=== PATIENT | male | born 1985 | race African-American/Black ===

== ENCOUNTER 2018-10-24 21:44 | Inpatient (IN) | payer OTHER ==
[~2018-10-24] VITALS: Ht 182.9 cm; Wt 83.8 kg
[2018-10-24 22:21] LABS: ABSOLUTE NEUTROPHILS 6.2 thou/uL (1.4-8.2); BASOPHILS 0.5 % (0.0-2.0); EOSINOPHILS 0.8 % (0.0-3.0); HEMATOCRIT 50.3 % (42.0-52.0); HEMOGLOBIN 16.4 gm/dL (14.0-18.0); LYMPHOCYTES 28.1 % (24.0-44.0); MCH 32.3 pg (26.0-34.0); MCHC 32.7 g/dL (28.0-37.0); MONOCYTES 11.4 % (1.0-8.0); PLATELET COUNT 186 thou/uL (150-400); POLYS 59.2 % (36.0-66.0); RBC 5.08 mil/uL (4.50-6.00); RDW 14.5 % (10.5-14.5); WBC 10.4 thou/uL (4.0-11.0)
--- NOTE | 2018-10-24 22:39 | NUR ---
LAST RESTRAINT REMOVED FROM RIGHT WRIST AT THIS TIME. PATIENT STATES HE WILL REMAIN CALM AND COOPERATIVE. WHEN ASKED ABOUT THE EVENTS OF THE EVENING, DORA STATES THAT HE HAD A FEW BEERS EARLIER IN THE DAY. DENIES ANY ILICIT DRUG USE. STATES HE HAS HAD FAINTING SPELLS SINCE THE AGE OF 11, WITH NO KNOWN CAUSE. PATIENT SLEEPING, BUT EASILY AROUSED.
[2018-10-24 22:40] LABS: ALBUMIN 3.7 g/dL (3.4-5.0); ANION GAP 28 mmol/L (7-16); BUN 2 mg/dL (7-18); CALCIUM 8.3 mg/dL (8.5-10.1); CHLORIDE 98 mmol/L (98-107); CO2 16 mmol/L (21-32); CREATININE 1.3 mg/dL (0.7-1.3); GLUCOSE 89 mg/dL (74-106); SALICYLATE < 2.8 mg/dL (2.8-20.0); SGOT 68 U/L (15-37); SGPT 70 U/L (30-65); SODIUM 142 mmol/L (136-145); TOTAL BILIRUBIN 0.5 mg/dL (<0.1-1.0); TOTAL PROTEIN 7.1 g/dL (6.4-8.2)
[2018-10-24 22:41] LABS: POTASSIUM 2.7 mmol/L (3.5-5.1)
[2018-10-25] VITALS (48 sets, daily range): BP systolic 110–138; BP diastolic 66–97
[2018-10-25 00:01] LABS: AMP/METHAMP Negative (Negative); BARBITURATES Negative (Negative); BENZODIAZEPINES Negative (Negative); COCAINE Negative (Negative); METHADONE Negative (Negative); OPIATES Negative (Negative); PCP Negative (Negative)
--- NOTE | 2018-10-25 05:23 | NUR ---
JOSE G PAEZ CALLED, PT REPORTS HE IS LEAVING, PURPOSEFUL STRIDES TO DOOR UNABLE TO REASON WITH PT BACK TO ROOM WITH SECURITY ON EITHER SIDE. JOSE G PAEZ CALLED AT [phone]. PT WILL BE AN ADMISSION FOR PSYCH
--- NOTE | 2018-10-25 05:26 | NUR ---
AFTER SPEAKING WITH PSYCH BORDEREAU CLERK, PATIENT DECIDED TO YANK IV OUT AND LEAVE HIS ROOM. REFUSING TO BE REDIRECTED AND THREATENING STAFF. PATIENT IS NOW IN 4 POINT RESTRAINTS AT THIS TIME. MEDICATIONS ADMINISTERED. BLOOD PRESSURE CUFF ON. OTHER MONITORING EQUIPMENT NOT APPLIED AT THIS TIME DUE TO PATIENT'S NON-COMPLIANCE. SECURITY AT BEDSIDE.
--- NOTE | 2018-10-25 05:47 | NUR ---
PATIENT CONTINUES TO THREATEN STAFF. SECURITY AT BEDSIDE. MEDICATIONS ADMINISTERED. PATIETN ATTEMPTING TO URINATE ON STAFF. PATIENT'S WAIST BAND TIED AND BRIEF APPLIED.
[2018-10-25 06:41] LABS: ANION GAP 15 mmol/L (7-16); BUN 2 mg/dL (7-18); CHLORIDE 107 mmol/L (98-107); CO2 23 mmol/L (21-32); CREATININE 1.1 mg/dL (0.7-1.3); GLUCOSE 68 mg/dL (74-106); POTASSIUM 3.2 mmol/L (3.5-5.1); SODIUM 145 mmol/L (136-145)
--- NOTE | 2018-10-25 07:11 | NUR ---
REPORT TO DAY SHIFT
--- NOTE | 2018-10-25 07:47 | NUR ---
SISTER MARICRUZ AND PT MOTHER EXPRESS CONCERN REGARDING PT BEHAVIOR. THEY BOTH REPORT ANGER OUT OF PROPORTION FOR SITUATION. EXPLOSIVE AND NO ONE CAN REASON WITH PT. BOTH LADIES SAY THAT SMALL THINGS PROVOKE RAGE REACTIONS IN WHICH HE CANNOT BE CALMED. SISTER REPORTS THAT PT HAS DECLINED HER ASSISTANCE IN SEEKING HELP AT [facility] AND WOULD NOT SPEAK TO HER FOR 3 WEEKS. MOM DESCRIBES "FLIP THE SWITCH" RESPONSE TO THINGS WHICH DO NOT GO HIS WAY OR SMALL INCIDENTS THAT SHOULD NOT BE THAT UPSETTING. MOTHER AND SISTER WILL COME IN THIS AM, MOTHER ENCOURAGED TO TALK WITH CASE MANAGEMENT
--- NOTE | 2018-10-25 08:15 | NUR ---
PATIENT ARRIVED TO ICU. ESCORTED BY TWO PIYUSH ALLAN. IN FOUR POINT VIOLENT RESTRAINTS. PATIENT LETHARGIC AND COOPERATING. ASSESSMENT WAS COMPLETED. ADMISSION HISTORY WAS COMPLETED. FALL RISK IMPLEMENTATIONS PUT IN PLACE. PATIENTS PAIN ASSESSED.
--- NOTE | 2018-10-25 08:19 | EKG ---
[address] [place] [address] ELECTROCARDIOGRAM REPORT Name: FERNANDEZ DUPREE Room #: 244-P ADM IN M.R.#: [id number] ������������������ Admission: 10/25/18 ������������������ Attend Phys: Lemuel Romero DO Discharge: ������������������ Date of : 83 Report #: [id number] ����������������������������������������������������������������� [id number] THIS REPORT FOR: //name// [facility] ED Test Date: 2018-10-24 Test Time: 22:26:56 Pat Name: FERNANDEZ DUPREE Department: Room: 244 Gender: M Potter Or Ceramic Artist: JONATHAN : 1985 Requested By: Colt Del Castillo Order Number: [id number] MD: Daniel Hughes Measurements Intervals [place] Rate: 112 P: 73 [place]: 156 QRS: 82 QRSD: 83 T: 11 QT: 330 QTc: 451 Interpretive Statements Sinus tachycardia Probable left atrial enlargement No previous ECG available for comparison Electronically Signed On 10-25-2018 8:19:35 CDT by Daniel Hughes [email or web address] ��������������������������������������������� <ELECTRONICALLY SIGNED> ���������������������������������������� By: Daniel Hughes MD ��������������������������������������������� 10/25/18 [id number] MD BETSY Rosa
[2018-10-25 09:28] LABS: LIPASE 80 U/L (73-393); TRIGLYCERIDE 50 mg/dL (<150)
--- NOTE | 2018-10-25 10:46 | NUR ---
CM ASSESSMENT: CASE OPENED FOR DC PLANNING. CLINICAL INFO REVIEWED. PT ADMITTED TO ICU AFTER MOTHER CALLED EMS PT WAS LYING ON GROUND UNAROUSEABLE. BECAME COMBATIVE WITH EMS AND AGAIN IN ER WITH STAFF AND BUZZ TAVARES AND PT RESTRAINED. PT CURRENTLY RESTRAINED AND SEDATED AND APPEARS QUIET, HAS SITTER AT BEDSIDE. MET WITH PT'S MOTHER NICOLA AND SISTER MARICRUZ IN WAITING ROOM. PT LIVES WITH MOTHER IN HER APT. MOM AND SISTER INDICATE PT WITH HX OF ETOH DAILY, DOES NOT WORK. NO PREVIOUS ETOH TREATMENT OR SOBRIETY PROGRAMS. FAMILY INDICATES PT IS EMOTIONALLY LABLILE AND QUICK TO ANGER WHEN DRINKING. MOTHER STATES HOLES IN JETER IN HER APT FROM PT. MOM INDICATES SHE DOES NOT FEEL SAFE WITH PT RETURNING TO HER APT AT DC. SISTER NOT ABLE TO TAKE IN PT AT SD EITHER. SISTER INDICATE SHE HAS TRIED TO GET PT INTO SYSTEM FOR F/U CARE AT [facility] RECENT[facility] AT [facility] BUT PT BECAME UPSET AND LEFT [place]ARK DURING INTAKE PROCESS AND HAS NOT SPOKEN WITH SISTER IN 3 WEEKS. MOTHER AND SISTER INDICATE THEY WOULD LIKE PSYCHIATRIST TO SEE PT. APPEARS MOBILE SOCIAL WORK COORDINATOR SAW PT IN ER. CURRENTLY PT WITH [facility]ABDO AND IN ICU. PROVIDED FAMILY WITH CM CONTACT. WILL FOLLOW.
[2018-10-25 11:13] LABS: ANION GAP 11 mmol/L (7-16); BUN < 1 mg/dL (7-18); CHLORIDE 108 mmol/L (98-107); CO2 25 mmol/L (21-32); CREATININE 0.8 mg/dL (0.7-1.3); GLUCOSE 54 mg/dL (74-106); MAGNESIUM 1.8 mg/dL (1.8-2.4); POTASSIUM 3.2 mmol/L (3.5-5.1); SODIUM 144 mmol/L (136-145)
[2018-10-25 11:18] LABS: CALCIUM 7.9 mg/dL (8.5-10.1)
[2018-10-25 15:07] LABS: GLYCOHEMOGLOBIN (HGB A1C) 4.7 % (4.8-5.6)
[2018-10-25 21:16] LABS: MAGNESIUM 1.6 mg/dL (1.8-2.4); POTASSIUM 3.6 mmol/L (3.5-5.1)
[2018-10-26] VITALS (21 sets, daily range): BP systolic 112–142; BP diastolic 74–100
[2018-10-26 04:56] LABS: CALCIUM 7.5 mg/dL (8.5-10.1); CREATININE 0.8 mg/dL (0.7-1.3); POTASSIUM 3.3 mmol/L (3.5-5.1)
--- NOTE | 2018-10-26 06:00 | NUR ---
PT HAS SLEPT AT INTERVALS TONIGHT. SEEMS MUCH MORE DEPRESSED THIS AM BARELY SPEAKING. NEURO INTACT. VOIDED 1000 CC HAILEY URINE. VSS SINUS RHYTHM PT DENIES PAIN NBOR DISCOMFORT. UP TO TOILET HAD ONE SOFT BROWN STOOL. REFUSED BATH. WILL CONT TO MONITOR.
--- NOTE | 2018-10-26 10:10 | NUR ---
PT AGITATED THAT HE HAS NOT BEEN ABLE TO LEAVE THE HOSPITAL. PT GOT URINE ON HIS PANTS AND AFTER EXLAINING HIS OPTIONS HE BECAME MORE AGITATED AND AGRESSIVE. PT GOT OUT OF BED, PACING AROUND THE ROOM. PT REFUSING TO SIT BACK DOWN IN THE BED OR CHAIR. PT TOOK OF PULSE OX CORD AND ASKING IF THE IV CAN COME OUT. EXTRACTOR PLANT OPERATOR, GHAZAL, IN ROOM WITH PATIENT. MD ROGERS NOTIFIED, HE STATED PT COULD NOT LEAVE AMA. REQUESTING MD MINA BE NOTIFIED. MD MINA PAGED.
--- NOTE | 2018-10-26 10:18 | NUR ---
PT PACING THE ROOM IS FRUSTRATED WANTS TO LEAVE. PAGED DR. STANLEY AND DR. MINA IN REGARDS TO THE [facility]. PT STATES HE DRINKS 3-4 TIMES A WEEK BEER OR HARD LIQUOR. PT HAS URINE ON HIS SWEAT PANTS INFORM PT HE COULD TAKE THEM OFF AND HERES A CLEAN GOWN AND BLANKET BUT REFUSED. OFFERED MEDS REFUSED MEDS TO CALM HIM DOWN. INFORM PT OF RISK OF ALCHOL WITHDRAW AND HIS DRINKING HE SAYS HE DONT CARE HED RATHER LEAVE THAN STAY IN THE HOSPITAL. AWAITING A CALL BACK FROM DR. MINA AT THIS TIME.
--- NOTE | 2018-10-26 10:30 | NUR ---
MD MINA AGREES WITH MD ROGERS. PT CANNOT LEAVE AMA. THERE IS A SIGNED AFIDAVIT IN CHART. MD MINA SAID SHE WILL BE ROUNDING ON PT LATER IN THE DAY. PLATE FORMER AND MD ROGERS ROUNDED TO EXPLAIN THE SITUATION. PATIENT NOT CALM AND COOPERATIVE.
--- NOTE | 2018-10-26 10:33 | NUR ---
COLLEEN reviewed chart. Pt has 1:1 sitter at bedside per psych. Psych will see pt again today. SW spoke with pt's sister, Sima, via phone per her request. COLLEEN provided update to Sima. Sima asked if her , Anil Mcpherson, would be able to visit or speak with pt, if pt is agreeable. Psych's note stated that pt's mother and sister could visit. No friends are allowed to visit. COLLEEN discussed with psych, who states's pt' brother in law, Anil, is able to visit. Pt is not allowed to leave AMA. COLLEEN updated Sima, who states she will call pt's nurse in about an hour to see if pt is agreeable with seeing or speaking with Anil. COLLEEN discussed with nursing. COLLEEN is following to assist as needed with discharge planning.
[2018-10-26 11:25] LABS: MAGNESIUM 1.9 mg/dL (1.8-2.4); POTASSIUM 3.5 mmol/L (3.5-5.1)
--- NOTE | 2018-10-26 16:32 | NUR ---
DR. MINA SPOKE WITH PATIENT ABOUT THE POTENTIAL FOR HIM LEAVING AND WHERE HE WOULD GO AFTER DC. FROM HER STANDPOINT HE WAS OKAY TO DC. DR. ROGERS WAS NOTIFIED TO OBTAIN DC ORDERS. FROM HIS STANDPOINT THE PT NEEDED A FEW MORE NIGHTS IN THE HOSPITAL. DR. ROGERS STATED THAT IF THE PATIENT DID NOT AGREE TO STAY OVER NIGHT HE COULD SIGN AMA FORMS AND LEAVE. PT SIGNED AMA FORM. IV DC'D. PATIENT CALLED A RIDE AND LEFT.
== END 2018-10-26 16:30 | disposition left against medical advice (07) | DRG 558 ==
LOC: EDBD 21:44 → ER 21:44 → EROBS 10-25 07:13 → ICU 10-25 08:09
PROVIDERS: Emergency Medicine; ADMIT Internal Medicine Geriatric Medicine
DX: M62.82 Rhabdomyolysis (principal); F41.9 Anxiety disorder, unspecified; F32.9 Major depressive disorder, single episode, unspecified; Z53.21 Procedure and treatment not carried out due to patient leaving prior to being seen by health care provider; F10.129 Alcohol abuse with intoxication, unspecified; E16.2 Hypoglycemia, unspecified
CPT/HCPCS: 10078